=== PATIENT | male | born 1965 | race Caucasian/White ===

== ENCOUNTER 2016-12-10 09:45 | Inpatient (IN) | payer OTHER ==
[2016-12-10 12:44] LABS: Hematocrit 46 % (42-52); Hemoglobin 15.3 g/dl (14.0-18.0); Mean Corpuscular HGB Conc 33 g/dl (31-36); Mean Corpuscular Hemoglobin 29 pg (27-31); Mean Corpuscular Volume 86 fL (80-94); Mean Platelet Volume 8 um3 (7.4-10.4); Red Blood Count 5.35 10^6/ul (4.0-5.4); Red Cell Distribution Width 14 % (10.5-15); White Blood Count 14.4 10^3/ul (3.5-10.8)
[2016-12-10] MEDS: NS 0.9% 1000 ML* 2,000 ML IV ONE (12:49)
[2016-12-10 13:11] LABS: Albumin 4.1 g/dL (3.2-5.2); BUN/Creatinine Ratio 11.2 (8-20); Calcium 9.1 mg/dL (8.6-10.3); EGFR Non-African American 66.1 (>60); Globulin 3.3 g/dL (2-4); Potassium 3.7 mmol/L (3.5-5.0); Total Bilirubin 1.5 mg/dL (0.2-1.0); Total Protein 7.4 g/dL (6.4-8.9)
--- NOTE | 2016-12-10 13:50 | ED ---
Abdominal Pain/Male - HPI Summary HPI Summary: 51M presents with epigatric pain that became RLQ starting Saturday. He denies any n/v/d. He admits to anorexia. He has had his gallbladder removed. last bowel movement was yesterday and was normal. last time ate something was yesterday afternoon. He has never felt this pain before. Pain is worst with movement especially going over bumps. - History of Current Complaint Chief Complaint: EDAbdPain Stated Complaint: ABD PAIN Time Seen by Provider: 12/10/16 12:12 Pain Intensity: 4 - Allergies/Home Medications Allergies/Adverse Reactions: Allergies Allergy/AdvReac Type Severity Reaction Status Date / Time Bupropion [From Wellbutrin] AdvReac Severe Hives Verified 12/10/16 16:46 Home Medications: Home Medications NK [No Home Medications Reported] 12/10/16 [History Confirmed 12/10/16] PMH/Surg Hx/FS Hx/Imm Hx Endocrine/Hematology History: Denies: Hx Anticoagulant Therapy Respiratory History: Reports: Hx Sleep Apnea - current CPAP user, Other Respiratory Problems/Disorders - altered sense of smell Denies: Hx Asthma GI History: Reports: Hx Gall Bladder Disease - s/p cholecystectomy 1996 Sensory History: Reports: Hx Contacts or Glasses - glasses Opthamlomology History: Reports: Hx Contacts or Glasses - glasses - Surgical History Surgery Procedure, Year, and Place: 1996 [place]-cholecystectomy Infectious Disease History: No Infectious Disease History: Denies: Traveled Outside the [place] in Last 30 Days - Family History Known Family History: Positive: Cardiac Disease - Social History Alcohol Use: None Substance Use Type: Reports: None Smoking Status (MU): Never Smoked Tobacco Review of Systems Negative: Fever Negative: Chest Pain Negative: Shortness Of Breath Positive: Abdominal Pain - RLQ. Negative: Vomiting, Diarrhea, Nausea All Other Systems Reviewed And Are Negative: Yes Physical Exam Triage Information Reviewed: Yes Vital Signs On Initial Exam: Initial Vitals Temp Pulse Resp BP Pulse Ox 98.3 F 93 16 124/67 98 12/10/16 09:54 12/10/16 09:54 12/10/16 09:54 12/10/16 09:54 12/10/16 09:54 Vital Signs Reviewed: Yes Appearance: Positive: Well-Appearing Skin: Positive: Warm, Dry Head/Face: Positive: Normal Head/Face Inspection Eyes: Positive: Normal, Conjunctiva Clear ENT: Positive: Normal ENT inspection, Pharynx normal, TMs normal Respiratory/Lung Sounds: Positive: Clear to Auscultation, Breath Sounds Present Cardiovascular: Positive: Normal, RRR Abdomen Description: Positive: Other: - moderate tenderness RLQ, pos obturator and rovsings sign, no rebound tenderness Bowel Sounds: Positive: Present - [place] Coma Scale Coma Scale Total: 15 Diagnostics - Vital Signs Vital Signs Temp Pulse Resp BP Pulse Ox 12/10/16 12:46 86 137/83 98 12/10/16 11:45 98.1 F 87 20 96/67 98 12/10/16 10:48 97.5 F 87 12 101/63 98 12/10/16 09:54 98.3 F 93 16 124/67 98 - Laboratory Lab Results: Lab Results 12/10/16 12/10/16 Range/Units 12:32 12:32 WBC 14.4 H (3.5-10.8) 10^3/ul RBC 5.35 (4.0-5.4) 10^6/ul Hgb 15.3 (14.0-18.0) g/dl Hct 46 (42-52) % MCV 86 (80-94) fL MCH 29 (27-31) pg MCHC 33 (31-36) g/dl RDW 14 (10.5-15) % Plt Count 204 (150-450) 10^3/ul MPV 8 (7.4-10.4) um3 Neut % (Auto) 85.7 H (38-83) % Lymph % (Auto) 6.6 L (25-47) % Sampson % (Auto) 6.8 (1-9) % Eos % (Auto) 0.2 (0-6) % Baso % (Auto) 0.7 (0-2) % Absolute Neuts (auto) 12.3 H (1.5-7.7) 10^3/ul Absolute Lymphs (auto) 0.9 L (1.0-4.8) 10^3/ul Absolute Monos (auto) 1.0 H (0-0.8) 10^3/ul Absolute Eos (auto) 0 (0-0.6) 10^3/ul Absolute Basos (auto) 0.1 (0-0.2) 10^3/ul Absolute Nucleated RBC 0 10^3/ul Nucleated RBC % 0 Sodium 132 L (133-145) mmol/L Potassium 3.7 (3.5-5.0) mmol/L Chloride 99 L (101-111) mmol/L Carbon Dioxide 25 (22-32) mmol/L Anion Gap 8 (2-11) mmol/L BUN 13 (6-24) mg/dL Creatinine 1.16 (0.67-1.17) mg/dL Est GFR ( Amer) 85.0 (>60) Est GFR (Non-Af Amer) 66.1 (>60) BUN/Creatinine Ratio 11.2 (8-20) Glucose 103 H (70-100) mg/dL Calcium 9.1 (8.6-10.3) mg/dL Total Bilirubin 1.50 H (0.2-1.0) mg/dL AST 14 (13-39) U/L ALT 15 (7-52) U/L Alkaline Phosphatase 78 (34-104) U/L C-React Prot High Sens 219.96 mg/L Total Protein 7.4 (6.4-8.9) g/dL Albumin 4.1 (3.2-5.2) g/dL Globulin 3.3 (2-4) g/dL Albumin/Globulin Ratio 1.2 (1-3) Lipase 12 (11.0-82.0) U/L Result Diagrams: 12/10/16 12:32 12/10/16 12:32 Lab Statement: Any lab studies that have been ordered have been reviewed, and results considered in the medical decision making process. - CT ab CT Interpretation: Positive (See Comments) - IMPRESSION: CT FINDINGS OF ACUTE APPENDICITIS CT Interpretation Completed By: Radiologist Abdominal Pain Fem Course/Dx - Course Course Of Treatment: 51M presents with epigastric pain that became RLQ pain starting today. admits to anorexia, denies any n/v/d, has moderate tenderness in RLQ, WBC and CRP elevated, CT positive for appendicitis, dr fletcher will see in ED to take to OR - Diagnoses Differential Diagnosis/HQI/PQRI: Appendicitis, Gall Bladder Disease, Pancreatitis Provider Diagnoses: Appendicitis Discharge - Discharge Plan Condition: Stable Disposition: ADMITTED TO [facility] Referrals: Mynor Dillon MD [Primary Care Provider] -
[2016-12-10] MEDS ORDERED: Iohexol 300* (CONTRAST) 10 ML SDV IV ONE (14:40)
[2016-12-10 14:56] LABS: Urine Bacteria Absent (Absent); Urine Bilirubin Negative (Negative); Urine Glucose Negative (Negative); Urine Nitrite Negative (Negative)
--- NOTE | 2016-12-10 15:25 | RAD ---
INDICATION: Right lower quadrant pain COMPARISON: CT October 18, 2014 TECHNIQUE: Axial source images were obtained from the hemidiaphragms to the symphysis pubis following administration of oral and intravenous contrast. 150 mL Omnipaque 300 was utilized. Coronal and sagittal reconstructed images were acquired. Lung bases: The lung bases are clear. Liver: The liver is normal in size. There are no masses. There is no ductal dilatation. Gallbladder: Cholecystectomy. Spleen: The spleen is normal in size. There are no masses. Pancreas: There is no focal pancreatic mass or ductal dilatation. Adrenal glands: There is no evidence of adrenal mass. Kidneys: The kidneys are normal in size and position. There are prompt nephrograms and there is prompt excretion bilaterally. There are no renal parenchymal masses. There is no evidence of nephrolithiasis. Adenopathy: There is no evidence of adenopathy by size criteria. Fluid collections: Mesenteric stranding in the mesentery right lower quadrant extending into the right paracolic gutter. Vessels:There are no significant atherosclerotic changes involving the aorta. There is no focal aneurysm. The iliac vessels are normal in caliber. The IVC appears normal. GI tract: The upper GI tract is unremarkable. The appendix is dilated and fluid-filled. There are multiple appendicoliths. There is moderate free fluid and mesenteric inflammatory change in the periappendiceal region. There is thickening of the coy of the terminal ileum and the cecal tip which is likely secondary to a primary appendiceal process. There is no free air. There is no obstruction. Pelvic organs: The prostate and seminal vesicles appear normal Bladder: There are no bladder masses. Abdominal and pelvic soft tissues: Small ventral hernia containing fat secondary to diastases of the rectus abdominis musculature. Osseous structures: There are no acute osseous findings. Other: None IMPRESSION: CT FINDINGS OF ACUTE APPENDICITIS
[2016-12-10] MEDS ORDERED: Piperac/Tazob 3.375 gm in NS* 3.375 GM/100 ML BAG IVPB ONE (16:14)
[2016-12-10] MEDS ORDERED: NS 0.9% 1000 ML* 1,000 ML IV SCH (16:15)
[2016-12-10] MEDS ORDERED: Acetaminophen TAB* 325 MG PO ONE (16:15)
[2016-12-10] MEDS ORDERED: ceFOXitin 2 GM IVPREMIX* 2 GM/50 ML BAG ONE (16:54)
[2016-12-10] MEDS ORDERED: Bupivacaine 0.25% EPI 200,000* 30 ML SDV ONE (17:06)
[2016-12-10] MEDS ORDERED: fentaNYL* 50 MCG/ML 2 ML VIAL (100 MCG VIAL) ONE ×2 (17:18→18:17)
[2016-12-10] MEDS ORDERED: Propofol* 10 MG/ML 20 ML BTL IV PUSH ONE (17:18)
[2016-12-10] MEDS ORDERED: Lidocaine 2% PF * 5 ML VIAL ONE (17:18)
[2016-12-10] MEDS ORDERED: Succinylcholine* 20 MG/ML 10 ML VIAL ONE (17:18)
[2016-12-10] MEDS ORDERED: Atracurium* 10 MG/ML 10 ML VIAL ONE (17:48)
[2016-12-10] MEDS ORDERED: fentaNYL* 50 MCG/ML 2 ML VIAL (100 MCG VIAL) IV PRN (18:14)
[2016-12-10] MEDS ORDERED: DiMENhydriNATE IV* 50 MG/ML VIAL IV PUSH PRN (18:14)
[2016-12-10] MEDS ORDERED: HYDROmorphone INJ* 1 MG/ML CARPUJECT SYRINGE IV PRN (18:14)
[2016-12-10] MEDS ORDERED: Ondansetron INJ* 2 MG/ML VIAL IV PRN ×2 (18:14→20:09)
[2016-12-10] MEDS ORDERED: Ketorolac INJ* 30 MG/ML 1 ML VIAL IV PRN ×2 (18:14→20:09)
[2016-12-10] MEDS ORDERED: Atropine 1MG/ML INJ* 1 ML VIAL ONE (19:29)
[2016-12-10] MEDS ORDERED: Edrophonium Chloride* 10 MG/ML 15 ML VIAL ONE (19:29)
[2016-12-10] MEDS ORDERED: Acetaminophen TAB* 325 MG PO PRN (20:09)
--- NOTE | 2016-12-10 20:09 | SURGPN ---
Brief Operative Note - Surgery Procedures: OPERATIVE REPORT PRE-OP: Acute appendicitis POST-OP:Acute perforated gangrenous appendicitis PROCEDURE: Open appendectomy after unsuccessful attempted laparoscopic appendectomy SURGEON: MD Thompson ANESTHESIA: General with Dr. Ding ASST: MARIFER Dumont IVF: 2 liter crystalloid EBL:100 cc SPECIMEN: appendix DRAIN: none WOUND CLASS: 4 COMPLICATIONS: none TO PACU
[2016-12-10] MEDS ORDERED: HYDROmorphone INJ* 1 MG/ML CARPUJECT SYRINGE ONE (20:11)
[2016-12-10] MEDS ORDERED: HYDROmorphone PCA* 20 MG/20 ML PCA.SYRING ONE (20:24)
[2016-12-10] MEDS ORDERED: HYDROmorphone PCA* 20 MG/20 ML PCA.SYRING PCA SCH (21:00)
[2016-12-10] MEDS ORDERED: Piperac/Tazob 3.375 gm in NS* 3.375 GM/100 ML BAG IVPB SCH (21:00)
--- NOTE | 2016-12-10 22:56 | HP ---
HISTORY AND PHYSICAL: DATE OF ADMISSION: 12/10/16 CHIEF COMPLAINT: Right lower quadrant abdominal pain. HISTORY OF PRESENT ILLNESS: Mr. Vignesh Rosales is a 51-year-old gentleman who, on Saturday morning, developed some generalized abdominal discomfort. Over the course of the day, it became more localized and severe in the right lower quadrant. He slept well on Saturday and then Saturday, yesterday, he was quite uncomfortable. Pain seemed to be worse when moving. He had poor oral intake yesterday with no fevers, shakes, or chills. No urinary complaints or diarrhea. He was somewhat anorexic although did have somewhat of an appetite today but has not had any solid food or liquid much to drink today. The pain worsened and he presented to the emergency room this afternoon. In the emergency room, he is noted to be afebrile with stable vital signs. He had tenderness in the right lower quadrant[place] [address] and he had mild elevation in his C-reactive protein. He underwent a CT scan of the abdomen and pelvis, we did review these images. It shows findings consistent with acute appendicitis with a fluid-filled dilated appendix with multiple appendicolith and some free fluid in the area as well as some periappendiceal inflammatory change including some thickening of the coy of the terminal ileum, which seemed to be secondary to the inflammatory process. There is no evidence of extraluminal air, abscess, or signs of perforation. PAST MEDICAL HISTORY: 1. Obesity. 2. Sleep apnea. PAST SURGICAL HISTORY: Laparoscopic cholecystectomy. MEDICINES: Include none. ALLERGIES: He is allergic to BUPROPION. SOCIAL HISTORY: He lives with a significant same sex partner. He does not use tobacco or alcohol. He denies use of illicit drugs. He works at [employer] in [place] [employer]. REVIEW OF SYSTEMS: Cerebrovascular: No dizziness or visual disturbances. Cardiovascular: No chest pain or shortness of breath. Pulmonary: No wheezing or hemoptysis. GI: As per above. No chronic abdominal discomfort. : No urgency or hematuria. Psych is none. PHYSICAL EXAMINATION GENERAL: He is a well-developed, well-nourished, slightly overweight male with normal attention to grooming. He is awake, alert, conversive, and quite pleasant. VITAL SIGNS: Temperature is 98.1, pulse 83, blood pressure 126/70. HEENT: His sclerae are anicteric. His oral mucosa is somewhat dry. NECK: Trachea was midline. LUNGS: Clear to auscultation with normal respiratory effort. HEART: Regular rate and rhythm without murmurs, rubs, gallops. ABDOMEN: Soft, nondistended. He has laparoscopic incisions in the right upper quadrant without hernia. He had normoactive bowel sounds throughout. He has some tenderness in the right lower quadrant with localized peritoneal signs. There is no generalized peritonitis. EXTREMITIES: No cyanosis or edema. PSYCHIATRIC: He is awake, alert, and oriented x3. DIAGNOSTIC STUDIES/LAB DATA: Laboratory values included a white blood cell count of 14,000, hemoglobin of 15. Electrolytes with a sodium of 132, BUN and creatinine of 13 and 1.1. He has elevated total bilirubin of 1.5 with a C- reactive protein high sensitivity of 219. Lipase was normal. CT scan shows as above acute appendicitis. IMPRESSION: Acute appendicitis. PLAN: Laparoscopic appendectomy. I discussed the procedure with the patient and his partner and the risks are, but not limited to bleeding, intraabdominal abscess formation, injury to peritoneal and retroperitoneal structures, possibility of an open procedure, abscess formation, the risk of general anesthesia, deep vein thrombosis, pulmonary embolism, as well as hospital stays and recovery times were discussed. In addition, we also discussed treatment of acute appendicitis nonoperatively but with his duration of 48 hours and the fact that there were multiple appendicolith I do believe that certainly he is not a candidate for IV antibiotic treatment without surgery and he agrees and wishes to proceed with surgery. Overall, it is felt that the benefits outweigh with the risks of surgery, we will keep him n.p.o., start on IV fluids and IV antibiotics, and plan for surgery this afternoon as the operating room schedule permits. CC: [facility]; Dr. Mynor Dillon * [id number]/[facility] #: [id number] ARMANDO
[2016-12-10] MEDS: Pantoprazole IV* 40 MG IV SCH (23:08)
[2016-12-10] MEDS: Piperac/Tazob 3.375 gm in NS* 3.375 GM/100 ML BAG IVPB SCH ×2 (23:10→23:16)
[2016-12-10] MEDS: Heparin VIAL(*) 5000 UNITS/ML VIAL (FIVE THOUSAND) SUBCUT SCH (23:14)
[2016-12-11] MEDS: Piperac/Tazob 3.375 gm in NS* 3.375 GM/100 ML BAG IVPB SCH ×5 (00:32→23:09)
[2016-12-11] MEDS: Heparin VIAL(*) 5000 UNITS/ML VIAL (FIVE THOUSAND) SUBCUT SCH ×3 (05:51→22:58)
[2016-12-11 05:56] LABS: Hematocrit 40 % (42-52); Hemoglobin 13.2 g/dl (14.0-18.0); Mean Corpuscular HGB Conc 33 g/dl (31-36); Mean Corpuscular Hemoglobin 28 pg (27-31); Mean Corpuscular Volume 86 fL (80-94); Mean Platelet Volume 8 um3 (7.4-10.4); Red Blood Count 4.67 10^6/ul (4.0-5.4); Red Cell Distribution Width 13 % (10.5-15); White Blood Count 12.4 10^3/ul (3.5-10.8)
[2016-12-11 06:14] LABS: BUN/Creatinine Ratio 11.3 (8-20); Calcium 8.2 mg/dL (8.6-10.3); EGFR African American 104.5 (>60); EGFR Non-African American 81.3 (>60); Potassium 3.7 mmol/L (3.5-5.0)
--- NOTE | 2016-12-11 08:44 | PN ---
Progress Note - Progress Note SOAP: Subjective: Doing well-out of bed and has been ambulating in the halls. Pain adequately controlled No N/V Objective: Temp Pulse Resp BP Pulse Ox 98.4 F 83 17 121/59 98 12/11/16 07:43 12/11/16 07:43 12/11/16 07:43 12/11/16 07:43 12/11/16 07:43 Intake & Output 12/09/16 12/10/16 12/11/16 12/12/16 06:59 06:59 06:59 06:59 Intake Total 5010 Output Total 327 100 Balance 4683 -100 Weight 255 lb Intake: IV Fluids 4810 LR 2700 Oral 200 Output: MITZI #1 27 Urine 300 100 PEX: Comfortable Lungs are CTA Abd is soft and slightly distended. Dressing intact. MITZI with serosanguinous drainage. Ext without edema 12/11/16 12/11/16 05:38 05:38 WBC 12.4 H RBC 4.67 Hgb 13.2 L Hct 40 L MCV 86 MCH 28 MCHC 33 RDW 13 Plt Count 183 MPV 8 Neut % (Auto) 83.9 H Lymph % (Auto) 8.6 L Kern % (Auto) 7.3 Eos % (Auto) 0 Baso % (Auto) 0.2 Absolute Neuts (auto) 10.4 H Absolute Lymphs (auto) 1.1 Absolute Monos (auto) 0.9 H Absolute Eos (auto) 0 Absolute Basos (auto) 0 Absolute Nucleated RBC 0 Nucleated RBC % 0 Sodium 132 L Potassium 3.7 Chloride 102 Carbon Dioxide 22 Anion Gap 8 BUN 11 Creatinine 0.97 Est GFR ( Amer) 104.5 Est GFR (Non-Af Amer) 81.3 BUN/Creatinine Ratio 11.3 Glucose 129 H Calcium 8.2 L Total Bilirubin AST ALT Alkaline Phosphatase C-React Prot High Sens Total Protein Albumin Globulin Albumin/Globulin Ratio Lipase Urine Color Urine Appearance Urine pH Ur Specific [place] Urine Protein Urine Ketones Urine Blood Urine Nitrate Urine Bilirubin Urine Urobilinogen Ur Leukocyte Esterase Urine WBC (Auto) Urine RBC (Auto) Urine Bacteria Urine Glucose Assessment: POD# 1 s/p open appendectomy for perforated appendicitis Plan: IV antibiotics PPI, sub q heparin Increase activity CONTENT ANALYST PO as tolerated.
--- NOTE | 2016-12-11 14:59 | OP ---
DATE OF OPERATION: 12/10/16 - ROOM #340 DATE OF : 63 SURGEON: Jan Mackay MD PRE ALGEBRA TEACHER: MARIFER Hernandez ANESTHESIOLOGIST: Dr. Castellon. ANESTHESIA: Local with general anesthesia. PRE-OP DIAGNOSIS: Acute appendicitis. POST-OP DIAGNOSIS: Acute gangrenous perforated appendicitis. OPERATIVE PROCEDURE: Open appendectomy after an unsuccessful attempted laparoscopic appendectomy. ESTIMATED BLOOD LOSS: 150 cc. IV FLUIDS: 2 L of crystalloid. WOUND CLASSIFICATION: IV. SPECIMENS: Appendix. DRAINS: #10 MITZI drain in the right lower quadrant. COMPLICATIONS: None. INDICATIONS: Mr. Vignesh Rosales is a 51-year-old gentleman who presented to the emergency room with a little over 48 hours of abdominal pain, becoming worse in the right lower quadrant over the past 24 to 36 hours. He had a white blood cell count of 13,000 and tenderness in the right lower quadrant and a CAT scan, which showed thickened appendix with a significant amount of inflammation in the surrounding bowel and periappendiceal area. He is now here to undergo an appendectomy and the risks, benefits, and alternatives were all explained to the patient and his partner preoperatively. FINDINGS: The patient had a gangrenous perforated appendicitis with a significant amount of inflammation in the right lower quadrant involving the cecum making impossible to proceed with the laparoscopic approach and was converted to an open appendectomy. DESCRIPTION OF PROCEDURE: Written informed consent was obtained, the abdomen was marked with indelible ink, and preoperative antibiotics were administered. The patient was taken to the operating room and placed in the supine position. Sequential compression devices and a warming blanket were applied. General anesthesia was administered. The abdomen was prepped and draped in the usual sterile fashion. Next, the time-out verification was completed. Next, a vertical incision was made just above the umbilicus at the midline of about a 1.5 cm and the midline fascia was divided. The peritoneal cavity was entered under direct vision. A 12-mm blunt port was inserted into the abdominal cavity and it was insufflated to 15 mmHg. Under direct vision, a 5-mm port left lower quadrant abdominal port and a second 5- mm port suprapubic were applied. On evaluation of the abdomen, there was no evidence of purulent peritonitis; however, there was an inflammatory component of small bowel and colon as well as omentum in the right lower quadrant, which was quite firm and rigid. With care, I was able to identify the terminal ileum, the wall of this portion of small bowel was quite thickened and stiff, but I was able to peel this off and retract it this somewhat superiorly. The cecum also was inflamed and somewhat fixed and thick walled and was certainly not mobile. I was able to then identify what appeared to be gangrenous appendicitis. Once I grasped this, it was obvious that there were several loose appendicoliths in the area, where this has been sealed off, but no evidence of an abscess but the mesentery was quite edematous and fixed. I next attempted to grasp the enlarged thickened gangrenous appendix. the mesoappendix was was also quite thickened and difficult to bring up into view and I tried to divide this with the LigaSure device. In addition, as I attempted to free up the cecum laterally to bring this into view to identify more of the base of the appendix; however, the entire gangrenous process did appear to extend right down to the base of the cecum and it became apparent that it was going to be difficult to dissect the appendix down to identify healthy cecum and I did not think that it was going to be possible to place a stapler along the thickened cecum. Although it was viable, but it was quite thick walled and at this point after approximately 1 hour of dissection, I made a decision to proceed with an open appendectomy. Next, a midline incision was centered just below the umbilicus and the exposure was obtained in the right lower quadrant. At this point, I began by mobilizing the cecum laterally and through the edematous peritoneal attachments to bring this up into the field of view and assess where the appendix actually entered the cecum. The appendix was gangrenous, quite friable, and I did tear this in several places; however, there was several appendicoliths that fell from the appendix; however, I was able to gather them and remove them from the field and I did not not leave any in the operative field. At this point now with better visualization, we sequentially divided the thickened mesoappendix from distal to proximal, and bleeding was controlled with interrupted 2-0 silk sutures along the mesenteric side. The cecum and its cap were somewhat indurated, but viable and I amputated the appendix right at the base of the cecum using the scissors. At this point, this was viable and I felt the staple line was not going to purchase well. I oversewed the cecum at the base at the appendiceal orifice with 4 separate interrupted 0 silk sutures. This seemed to be viable and closed nicely the defect nicely. We then irrigated the pelvis, right lower quadrant as much with normal saline. Hemostasis was assured. A #10 MITZI drain was placed through a separate stab wound in the right lower abdominal wall, placed up into the right lower quadrant and the tip extended down into the pelvis. The cecum and small bowel as well as the omentum were then placed back in the right lower quadrant. All sponge, needle, and instrument counts were reported as correct. The midline fascia was closed with interrupted #1 Polysorb suture. The skin and all incisions were approximated with stapling device. The midline incision was packed loosely with a half-inch new gauze. Dry sterile dressing were applied. The patient tolerated the procedure well, was taken to the recovery room in stable condition. CC: [facility]; Mynor Dillon MD * [id number]/[facility] #: [id number] ARMANDO
[2016-12-11] MEDS: Pantoprazole IV* 40 MG IV SCH (23:00)
[2016-12-12] MEDS: Heparin VIAL(*) 5000 UNITS/ML VIAL (FIVE THOUSAND) SUBCUT SCH ×3 (05:49→21:43)
[2016-12-12] MEDS: Piperac/Tazob 3.375 gm in NS* 3.375 GM/100 ML BAG IVPB SCH ×4 (05:52→22:55)
[2016-12-12] MEDS ORDERED: oxyCODONE/Acetamin 5/325 MG* TAB PO PRN (10:08)
[2016-12-12] MEDS ORDERED: HYDROmorphone INJ* 1 MG/ML CARPUJECT SYRINGE IV SLOW PU PRN (10:09)
--- NOTE | 2016-12-12 10:17 | PN ---
Progress Note - Progress Note Note: Surgery Progress: S: POD #2. Doing well. Would like to try more by mouth. No N/V. Pain well controlled (using CADD TECHNICIAN < 1x/hr). No flatus or BM yet. Ambulating well. Voiding well. O: Vital Signs - 8 hr 12/12/16 12/12/16 12/12/16 03:52 03:55 05:58 Temperature 98.0 F Pulse Rate 80 Respiratory 20 16 16 Rate Blood Pressure 127/73 (mmHg) O2 Sat by Pulse 96 95 94 Oximetry 12/12/16 07:36 Temperature 98.3 F Pulse Rate 78 Respiratory 18 Rate Blood Pressure 122/66 (mmHg) O2 Sat by Pulse 97 Oximetry Intake and Output Last 24 Hours 12/10/16 12/11/16 12/12/16 12/13/16 06:59 06:59 06:59 06:59 Intake Total 5110 3742 Output Total 327 1835 Balance 4783 1907 Weight 255 lb Intake: IV Fluids 4910 3322 LR 2700 1096 Oral 200 420 Output: MITZI #1 27 85 Urine 300 1750 Other: # Bowel Movements 0 Heart: reg Lungs: clear ant Abd: +BS; obese; soft; min tenderness; midline incision w/ moderate, mostly old sanguinous drainage. Packing removed. DSD placed. A/P: s/p lap->open appendectomy, doing well. Cont IV abx. Will heplock and adv diet as [place]. Change to po analgesics. Anticipate home in 1-2 d on po abx.
[2016-12-12] MEDS: oxyCODONE/Acetamin 5/325 MG* TAB PO PRN (19:16)
[2016-12-12] MEDS: Pantoprazole IV* 40 MG IV SCH (21:46)
[2016-12-13] MEDS: oxyCODONE/Acetamin 5/325 MG* TAB PO PRN ×3 (02:58→12:00)
[2016-12-13] MEDS: Heparin VIAL(*) 5000 UNITS/ML VIAL (FIVE THOUSAND) SUBCUT SCH (05:41)
[2016-12-13] MEDS: Piperac/Tazob 3.375 gm in NS* 3.375 GM/100 ML BAG IVPB SCH ×2 (05:41→10:29)
--- NOTE | 2016-12-13 07:48 | PN ---
Progress Note - Progress Note SOAP: Subjective: Continues to improve Has had BM and is passing large amounts of flatus Tolerating po and is taking some po pain meds Ambulating in halls Objective: Temp Pulse Resp BP Pulse Ox 98.1 F 66 20 104/62 97 12/13/16 03:44 12/13/16 03:44 12/13/16 04:58 12/13/16 03:44 12/13/16 03:44 Intake & Output 12/11/16 12/12/16 12/13/16 12/14/16 06:59 06:59 06:59 06:59 Intake Total 5110 3742 4257 Output Total 327 1835 3535 Balance 4783 1907 722 Weight 255 lb Intake: IV Fluids 4910 3322 1377 ABX - ZOSYN 213 LR 2700 1096 1034 NS (0.9%) 25 Oral 726 573 0397 Output: MITZI #1 27 85 160 Urine 300 1750 3375 Other: # Bowel Movements 0 0 PEX: Comfortable Lungs are CTA Abd is soft and slightly distended, incision is clean and dry--staple gaps were probed with q-tip and drained a small amount of serous fluid. Bowel sounds are present. MITZI in place with small amount of serosanguinous fluid in bulb Ext without edema Assessment: POD # 3 s/p open appendectomy for perforated appendicitis Ileus resolved Plan: D/C home today 7 days of po Augmentin--[facility] [address] D/C drain today before discharge Percocet/NSAID's for pain Follow up in office next Saturday.
[2016-12-13 08:06] VITALS: BP 124/73
--- NOTE | 2016-12-20 01:21 | DS ---
DISCHARGE SUMMARY: DATE OF ADMISSION: 12/10/16 DATE OF DISCHARGE: 12/13/16 PRINCIPAL DIAGNOSIS: Acute appendicitis. 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 No evidence of malignancy noted. PROCEDURE PERFORMED: Open appendectomy. CONDITION ON DISCHARGE: Good. DISPOSITION: To home. Please see written discharge instruction sheet. HISTORY OF PRESENT ILLNESS: Mr. Vignesh Rosales is a 51-year-old gentleman who presented to the emergency room here at [facility] almost little over 48 hours of abdominal discomfort, which became progressively worse in the right lower quadrant over the past 24 hours. He had had some anorexia. No fevers, shakes, or chills and in the emergency room was noted to have exquisite tenderness in the right lower quadrant. The white blood cell count was elevated to 14,000. He underwent a CT scan of the abdomen and pelvis, which showed findings consistent with acute appendicitis, fluid-filled dilated appendix with appendicoliths, and some free fluid in the area without evidence of abscess or extraluminal air. HOSPITAL COURSE: The patient was seen in surgical consultation and it was recommended that he undergo an appendectomy. On the evening of his presentation, he was taken to the operating room where he underwent an attempted laparoscopic with a conversion to open appendectomy due to the significant amount of inflammation in the right lower quadrant. Appendix appeared to be gangrenous with localized perforation without an abscess. A drain was placed. Postoperatively, he was maintained on broad-spectrum intravenous antibiotics. He remained afebrile. His postoperative ileus resolved and his diet was advanced. He remained afebrile and his white blood cell count returned to normal. His MITZI drain was discharged on postoperative day #3 when he was discharged to home, tolerating a regular diet with appropriate office followup. He was given a prescription for 7 days of oral Augmentin as well as oxycodone for discomfort. 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 The case was to be discussed at the weekly tumor board and appropriate followup arrangement and oncologic consultations as an outpatient. CC: [facility]; Mynor Dillon MD * [id number]/[facility] #: [id number] ARMANDO
== END 2016-12-13 12:28 | disposition home or self-care (01) | DRG 339 ==
LOC: ED 09:45 → OR 18:05 → SSU 22:16 → OBSVTOIN 12-12 14:09
PROVIDERS: ADMIT Surgery; ATTEND Surgery
PROC: 0DJD4ZZ Inspection of Lower Intestinal Tract, Percutaneous Endoscopic Approach (ICD-10-PCS; 2016-12-10)
PROC: 5A09357 Assistance with Respiratory Ventilation, Less than 24 Consecutive Hours, Continuous Positive Airway Pressure (ICD-10-PCS; 2016-12-10)
PROC: 0DTJ0ZZ Resection of Appendix, Open Approach (ICD-10-PCS; principal; 2016-12-10 18:07)
DX: K35.3 Acute appendicitis with localized peritonitis (principal); K56.7 Ileus, unspecified; Z88.8 Allergy status to other drugs, medicaments and biological substances; Z82.49 Family history of ischemic heart disease and other diseases of the circulatory system; E66.9 Obesity, unspecified; G47.33 Obstructive sleep apnea (adult) (pediatric); K38.1 Appendicular concretions; Z68.38 Body mass index [BMI] 38.0-38.9, adult
CPT/HCPCS: 36415; 74177; 80048; 80053; 81003; 81015; 83690; 85025; 86141; 88304; 94660; 94760; 99283; A9270-GY; J0330; J0461; J0694; J1170; J1644; J2543; J2704; J3010; Q9967